=== PATIENT | male | born 1990 | race Two or more races ===

== ENCOUNTER 2020-05-17 17:08 | Emergency (ER) | payer OTHER ==
[~2020-05-17] VITALS: Ht 177.8 cm; Wt 72.6 kg
== END 2020-05-17 19:09 | disposition home or self-care (01) ==
LOC: ER 17:08
DX: S61.224A Laceration with foreign body of right ring finger without damage to nail, initial encounter (principal); W45.8XXA Other foreign body or object entering through skin, initial encounter; Y93.89 Activity, other specified; Y92.69 Other specified industrial and construction area as the place of occurrence of the external cause; Y99.8 Other external cause status